=== PATIENT | male | born 1965 | race Caucasian/White ===

== ENCOUNTER 2019-01-29 12:35 | Day surgery (SDC) | payer OTHER, SELFPAY ==
[2019-01-29] VITALS (7 sets, daily range): BP systolic 94–130; BP diastolic 68–93; PULSE 82–97; RESP 10–18; TEMP 36.6–37; O2SAT 94–98; BMI 25.7
--- NOTE | 2019-01-29 | PATH_ITS ---
[facility] Accession Number: [id number] . 01 Material submitted: . PART A: hepatic flexure - HEPATIC FLEXURE POLYP PART B: body - POLYP AT 50CM PART C: body - POLYP AT 30CM . 01 Clinical history: . A: 5MM HEPATIC FLEXURE POLYP X2 B: POLYP AT 50CM X2 . 02 Diagnosis: A. Hepatic Flexure, Polyp, Biopsy: Tubular adenoma in two of two fragments. . B. Colon, Polyp at 50 cm, Biopsy: Tubular adenomas. No evidence of malignancy or high-grade dysplasia. . . C. Polyp at 30 cm, Biopsy: Tubular adenoma. MRV/02/01/2019 . 02 Electronically signed: . Ibeth Loya MD, Pathologist NPI- [id number] . 01 Gross description: . (A) Received in formalin, labeled 5 mm polyp @ hepatic flexure, are two fragments of mcfarlane-mata tissue (each approximately 0.4 x 0.2 x 0.1 cm). Entirely submitted in cassette A1. (B) Received in formalin, labeled polyp @ 50 cm, are multiple pieces of mata rubbery polyps (2.5 x 2.2 x 1.0 cm). The apparent resection margins are inked blue. The largest piece is serially sectioned and entirely submitted in cassettes B1-B3, the two apparent resection margins are bisected and entirely submitted in cassette B4, and the remaining fragments are submitted in cassette B5. (C) Received in formalin, labeled polyp @ 30 cm, is a piece of mata tissue (0.6 x 0.2 x 0.2 cm). Submitted intact in cassette C1. ([id number]) /MRV . 02 Pathologist provided ICD-10: D12.6, D12.3 . 02 CPT . 135835, 982453, 658765 Performed at: 01 [facility] [address] [place] [address], [place], [place] [id number] MD Nitesh Sanz MD Phone: [phone] Performed at: 02 [facility] [place] [address] [place], [place] [id number] MD Ibeth Loya MD Phone: [phone]
[2019-01-29] MEDS: SODIUM CHLORIDE 0.9% 1,000 ML 200 ML IV (13:40)
--- NOTE | 2019-01-29 13:49 | PM.HP.1 ---
History of Present Illness Date Patient Seen: 01/29/19 Time Patient Seen: 13:49 Chief complaint: [id number] Narrative: Patient here for his 1st screening colonoscopy is asymptomatic Patient History Social History household members: none Family & Social History Social History: household members none Meds Allergies Allergy/AdvReac Type Severity Reaction Status Date / Time No Known Drug Allergies Allergy Verified 01/29/19 13:31 Review of Systems Review of Systems All systems reviewed & are unremarkable except as noted in HPI and below Exam Vital Signs (past 8 hours): - 01/29/19 13:32 Temperature 98.6 F Pulse Rate 97 H Respiratory Rate 15 Blood Pressure 130/93 H Pulse Oximetry 98 Oxygen Delivery Method Room Air Narrative Exam Narrative: Patient is alert and oriented Lungs are clear with no rales or wheezes Heart regular rhythm no murmur Abdomen is soft and nontender no organomegaly Rectal to be done at time of colonoscopy Assessment & Plan Assessment & Plan narrative: Patient is asymptomatic here for screening colonoscopy has no questions about the procedure which were all answered
[2019-01-29] MEDS: ONDANSETRON 4 MG/2 ML INJ IV (15:15)
--- NOTE | 2019-01-29 15:22 | PM.OP.ENDO ---
Operative Date/Time/Diagnoses Date of procedure: 01/29/19 Time of procedure: 15:23 Pre-op diagnosis: Two 5 mm polyps at the hepatic flexure removed with cold forceps to large 1-1/2 to 2 cm polyps at 50 cm removed with the electro cautery snare another polyp at 30 cm removed with the snare that was 1 cm Post-op diagnosis: other Procedure & Clinicians Study performed: Total colonoscopy and polypectomy at hepatic flexure 50 cm and 30 cm the 50 cm site was tattooed Same procedure as scheduled: Yes Indications: Screening Surgeon: Spike Spivey Procedure Notes SCOAP/Timeout: Was done Procedure in detail: Patient was given conscious sedation after being properly identified during surgical pause indication sedation included 8 mg of Versed and 250 micro g of fentanyl flexible fiberoptic colonoscope inserted transanally to the cecum at the hepatic flexure there were 2 5 mm polyps removed with cold forceps these were submitted at 50 cm the patient had 2 large pedunculated polyps removed with the electro cautery snare these were submitted and the area was tattooed these were 1-1/2 and 2 cm polyps at 30 cm there was a 1 cm polyp removed with a cold snare this was also submitted procedure was well-tolerated with minimal blood loss and the bleeding was noted all. Upon completion Scope withdrawal time: 25 Sedation minutes: 50 Findings: polyp Recommendations: Colonscopy in 1 year Disposition: PACU
[2019-01-29] MEDS: fentaNYL 250 MCG/5 ML INJ IV (15:23)
[2019-01-29] MEDS: MIDAZOLAM 5 MG/5 ML VIAL IV (15:24)
== END 2019-01-29 16:16 | disposition home or self-care (01) ==
PROVIDERS: PCP Physician Assistant; Visit Provider Surgery
PROC: 0DJD8ZZ Inspection of Lower Intestinal Tract, Via Natural or Artificial Opening Endoscopic (ICD-10-PCS; CPT 45378; principal; 2019-01-29 14:30)
DX: Z12.11 Encounter for screening for malignant neoplasm of colon (principal); D12.3 Benign neoplasm of transverse colon; D12.6 Benign neoplasm of colon, unspecified
CPT/HCPCS: 45385; 45381; 99152; 99153; J2250; J2405; J3010

== ENCOUNTER → 2022-01-09 15:50 | Outpatient (CLI) | payer OTHER, SELFPAY ==
[2022-01-09 17:11] LABS: COVID19 -Nasal RAPID Negative (Negative)
== END ==
PROVIDERS: PCP Physician Assistant; Visit Provider Surgery
DX: Z20.822 Contact with and (suspected) exposure to COVID-19 (principal); Z01.812 Encounter for preprocedural laboratory examination
CPT/HCPCS: 87635; C9803

== ENCOUNTER 2022-01-10 12:32 | Day surgery (SDC) | payer OTHER, SELFPAY ==
--- NOTE | 2022-01-10 | PATH_ITS ---
[facility] Accession Number: [id number] . 01 Material submitted: . PART A: splenic flexure - SPLENIC FLEXURE COLON POLYPS PART B: colon - DESCENDING COLON POLYP PART C: colon - OLD POLYPECTOMY SITE BIOPSY . 01 Clinical history: . [facility] [place] ENCOUNTER FOR SCREENING FOR MALIGNANT NEOPLASM . 01 Diagnosis: A. Splenic Flexure, Polyp, Biopsy: Tubular adenoma. . B. Descending Colon Polyp, Biopsy: Tubular adenoma. . C. Old Polypectomy Site, Biopsy: Colonic mucosa with submucosal pigment consistent with tattoo ink and no other diagnostic abnormality. Negative for active, chronic and microscopic colitis. Negative for dysplasia and malignancy. MRV 01/16/2022 1419 Local . 01 Electronically signed: . Ibeth Loya MD, Pathologist NPI- [id number] . 01 Gross description: . Part A: SPLENIC FLEXURE COLON POLYPS: Received in formalin is 1 fragment(s) of mata, soft tissue measuring 1.0 x 0.2 x 0.1 cm submitted entirely in 1 cassette(s) Part B: DESCENDING COLON POLYP: Received in formalin is 1 fragment(s) of mata, soft tissue measuring 0.3 x 0.2 x 0.2 cm submitted entirely in 1 cassette(s) Part C: OLD POLYPECTOMY SITE BIOPSY: Received in formalin is 1 fragment(s) of mata, soft tissue measuring 0.5 x 0.2 x 0.2 cm submitted entirely in 1 cassette(s) /CPE 01/11/2022 0631 Local . 01 Pathologist provided ICD-10: D12.3, D12.4 . 01 CPT . 564312, 248595, 414752 Specimen Comment: A courtesy copy of this report has been sent to [phone] Performed at: [address] [facility] [address], [place], [place] [id number] MD Nitesh Sanz MD Phone: [phone]
[2022-01-10 12:50] VITALS: BP 146/94; PULSE 97; RESP 18; TEMP 36.4; O2SAT 97; BMI 26.6
[2022-01-10] MEDS: LACTATED RINGERS 1,000 ML 84 ML IV (13:03)
--- NOTE | 2022-01-10 14:46 | PM.HP.1 ---
History of Present Illness History of Present Illness Date Patient Seen: 01/10/22 Time Patient Seen: 14:46 Chief complaint: SDC Narrative: Dany is a 48-year-old man who had a colonoscopy in 2019. Several large tubular adenomas were resected and he was instructed to return in a year for colonoscopy. He denies rectal bleeding or melena. He has no known family history of colon cancer. Patient History Family & Social History Social History: household members none Tobacco & Substance use: Smoking Status Never smoker alcohol intake current alcohol intake frequency a few times a week Substance Use Type does not use Meds Home Medications and Allergies Home Medications Medication Instructions Recorded Confirmed Type No Known Home Medications 01/10/22 01/10/22 History Allergies Allergy/AdvReac Type Severity Reaction Status Date / Time No Known Drug Allergies Allergy Verified 01/10/22 12:57 Exam Vital Signs (past 8 hours): - 01/10/22 12:50 Temperature 97.6 F Pulse Rate 97 H Respiratory Rate 18 Blood Pressure 146/94 H Pulse Oximetry 97 Oxygen Delivery Method Room Air Oxygen Delivery Method Room Air Const General: healthy appearing Resp Effort & Inspection: normal respiratory effort GI Palpation: soft Assessment & Plan Assessment and plan (1) History of colon polyps: Status: Acute Plan Risks and benefits of colonoscopy reviewed and he would like to proceed. Time Spent With Patient Critical Care time: I spent a total of [] minutes of critical care time on this patient's care today; this time is exclusive of procedural time.
[2022-01-10] MEDS: fentaNYL 250 MCG/5 ML INJ 125 MCG IV (14:59)
[2022-01-10] MEDS: MIDAZOLAM 5 MG/5 ML VIAL 6 MG IV (14:59)
--- NOTE | 2022-01-10 15:16 | P.OP.COLON_ITS ---
Operative Date/Time/Diagnoses Date of procedure: 01/10/22 Time of procedure: 15:16 Pre-op diagnosis: History of colon polyps Post-op diagnosis: same Procedure & Clinicians Study performed: Colonoscopy Same procedure as scheduled: Yes Surgeon: Suresh Silverman Procedure Notes Procedure in detail: Surgeon: Suresh Silverman MD Procedure: The patient was brought to the endoscopy suite, placed in left lateral decubitus position. The patient was connected to monitoring devices. A time-out was performed. Sedation was administered. Once the patient was adequately sedated, a digital rectal exam was performed and was normal. The scope was then inserted and advanced to the cecum where the appendiceal orifice was identified and photographed. The scope was then slowly withdrawn over greater than 6 minutes. The mucosa was thoroughly inspected. There was a 6 mm polyp in the distal transverse colon near the splenic flexure which was removed with a cold snare. There was a 6 mm polyp in the proximal descending colon which was removed with a cold snare. The tattoo ink from the prior polypectomy was noted in the descending colon. There was no evidence of any new neoplasia there but there was some hypertrophied tissue in the center of the ink stain. This was biopsied with Jumbo forceps. The rest of the colon was normal. The scope was retroflexed in the rectum. No abnormalities were noted. The scope was straightened and removed. The patient was awakened and brought to recovery. Versed: 6 mg Fentanyl: 125 mcg EBL: 5 mL Findings: 5 mm polyp in the distal transverse colon and 5 mm polyp in the proximal descending colon, old ink stain from prior polypectomy site with some h ypertrophied mucosa in the center Scope withdrawal time: 12 Sedation minutes: 20 Post-procedure Recommendations: Will call with biopsy results Disposition: PACU
[2022-01-10 15:18] VITALS: BP 130/82; PULSE 90; RESP 13; TEMP 36.9; O2SAT 91
[2022-01-10 15:24] VITALS: BP 129/86; PULSE 96; RESP 16; TEMP 37.2; O2SAT 98
[2022-01-10 15:29] VITALS: BP 124/88; PULSE 94; RESP 17; TEMP 37.1; O2SAT 97
--- NOTE | 2022-01-10 15:39 | SUR.PHASEII ---
Discharge instructions reviewed with patient, and time allowed for questions. Pt left unit via w/c with all personal belongings to ER exit to meet spouse who will transport pt home.
== END 2022-01-10 15:40 | disposition home or self-care (01) ==
PROVIDERS: PCP Physician Assistant; Referring Provider Surgery; Visit Provider Surgery
PROC: 0DJD8ZZ Inspection of Lower Intestinal Tract, Via Natural or Artificial Opening Endoscopic (ICD-10-PCS; CPT 45378; principal; 2022-01-10 13:45)
DX: Z12.11 Encounter for screening for malignant neoplasm of colon (principal); Z86.010 Personal history of colon polyps; D12.3 Benign neoplasm of transverse colon; D12.4 Benign neoplasm of descending colon
CPT/HCPCS: 45385; 45380; 99152; J2250; J3010